=== PATIENT | female | born 1990 | race African-American/Black ===

== ENCOUNTER 2020-04-01 23:56 | Emergency (ER) | payer MEDICAID, OTHER ==
[~2020-04-01] VITALS: Ht 152.4 cm; Wt 51.7 kg
[2020-04-02 01:09] VITALS: BP 117/76
[2020-04-02] MEDS ORDERED: TETANUS-DIPTH-ACEL PERTUSSIS 0.5ML SYR Tdap IM ONE (01:15)
== END 2020-04-02 01:40 | disposition home or self-care (01) ==
LOC: ER 23:56
DX: S61.431A Puncture wound without foreign body of right hand, initial encounter (principal); S60.221A Contusion of right hand, initial encounter; W55.01XA Bitten by cat, initial encounter; Y93.89 Activity, other specified; Y92.89 Other specified places as the place of occurrence of the external cause; Y99.8 Other external cause status
CPT/HCPCS: 90471; 90715

== ENCOUNTER 2022-08-27 08:11 | Emergency (ER) | payer MEDICAID ==
[~2022-08-27] VITALS: Ht 152.4 cm; Wt 50.0 kg
[2022-08-27 08:25] VITALS: BP 139/98
[2022-08-27 09:44] LABS: Urine Bacteria FEW /hpf (None Seen); Urine Blood Negative /uL (Negative); Urine Budding Yeast OCCASIONAL /hpf (None Seen); Urine Mucus FEW (None Seen); Urine Specific Gravity 1.021 (1.001-1.035); Urine WBC 31 /hpf (0 - 5)
[2022-08-27] MEDS ORDERED: METR-344 PO (10:13)
[2022-08-27] MEDS ORDERED: FLUC150T38 PO (10:13)
[2022-08-27] MEDS ORDERED: BACDST PO (10:13)
== END 2022-08-27 10:18 | disposition home or self-care (01) ==
LOC: ER 08:11
DX: N76.0 Acute vaginitis (principal); N39.0 Urinary tract infection, site not specified; Z32.02 Encounter for pregnancy test, result negative; Z88.2 Allergy status to sulfonamides
CPT/HCPCS: 81001; 81025; 87210

== ENCOUNTER 2022-09-01 15:20 | Emergency (ER) | payer MEDICAID ==
[~2022-09-01] VITALS: Ht 152.4 cm; Wt 45.0 kg
[~2022-09-01 15:20] MED LIST: BACDST PO; FLUC150T38 PO; METR-344 PO
[2022-09-01 17:06] LABS: Basophils # (auto) 0 10 ^3/uL (0-0.2); Basophils % (auto) 0.7 % (0.0-2.0); Eosinophils # (auto) 0 10 ^3/uL (0-0.8); Eosinophils % (auto) 0.7 % (0.0-7.0); Hematocrit 43.9 % (36.0-46.0); Hemoglobin 14.2 g/dL (12.2-16.2); Lymphocytes # (auto) 1.1 10 ^3/uL (0.4-5.4); Lymphocytes % (auto) 19.3 % (10.0-50.0); Mean Corpuscular Hemoglobin 28.6 pg (28.0-32.0); Mean Corpuscular Hgb Conc. 32.3 g/dL (32.0-36.0); Mean Corpuscular Volume 88.6 fL (80.0-100.0); Monocytes # (auto) 0.8 10 ^3/uL (0-1.3); Neutrophils # (auto) 3.6 10 ^3/uL (1.6-8.6); Neutrophils % (auto) 64.3 % (37.0-80.0); Nucleated Red Blood Cells % 0.9 %; Red Blood Cells 4.96 10^6/uL (4.0-5.20); Red Cell Distribution Width 15.2 % (11.8-14.3); White Blood Cell 5.6 10^3/uL (4.4-10.8)
[2022-09-01 17:21] LABS: Albumin 3.8 g/dL (3.4-5.0); BUN/Creatinine Ratio 11.8 (10.0-20.0); Calcium 8.9 mg/dL (8.5-10.1); Magnesium 2.1 mg/dL (1.6-2.6); Potassium 4.5 mmol/L (3.5-5.1)
[2022-09-01 17:24] LABS: Bilirubin, Total 0.2 mg/dL (0.2-1.0); Total Protein 8.7 g/dL (6.4-8.2)
[2022-09-01 18:23] LABS: Urine Bacteria FEW /hpf (None Seen); Urine Blood Negative /uL (Negative); Urine Mucus FEW (None Seen); Urine Specific Gravity 1.026 (1.001-1.035); Urine WBC 17 /hpf (0 - 5)
[2022-09-01] MEDS ORDERED: GABA-1250 PO (20:14)
[2022-09-01] MEDS ORDERED: VALA1TAB PO (20:14)
[2022-09-01 20:41] VITALS: BP 129/89
== END 2022-09-01 20:47 | disposition home or self-care (01) ==
LOC: ER 15:30
DX: R07.89 Other chest pain (principal); N39.0 Urinary tract infection, site not specified; B02.9 Zoster without complications
CPT/HCPCS: 36415; 71045; 76705; 80053; 81001; 83735; 84484; 85025; 93005

== ENCOUNTER 2022-10-08 08:25 | Emergency (ER) | payer MEDICAID ==
[~2022-10-08] VITALS: Ht 152.4 cm; Wt 47.0 kg
[~2022-10-08 08:25] MED LIST changes: +GABA-1250 PO; +VALA1TAB PO
[2022-10-08 08:45] VITALS: BP 138/83; PULSE 101; RESP 16; TEMP 97.8; O2SAT 100
[2022-10-08 09:33] LABS: Urine Bacteria FEW /hpf (None Seen); Urine Blood Negative /uL (Negative); Urine Mucus FEW (None Seen); Urine WBC 4 /hpf (0 - 5)
[2022-10-08] MEDS ORDERED: MET500T PO (09:50)
[2022-10-08] MEDS ORDERED: CEPH500C PO (10:06)
== END 2022-10-08 10:05 | disposition home or self-care (01) ==
LOC: ER 08:25
DX: N90.7 Vulvar cyst (principal); Z79.899 Other long term (current) drug therapy
CPT/HCPCS: 81001; 81025; 87210